=== PATIENT | female | born 1975 | race African-American/Black ===

== ENCOUNTER 2023-01-22 08:45 | Observation (INO) ==
[2023-01-22] MEDS ORDERED: ANCEF VIAL 1 GRAM ONE (11:13)
[2023-01-22] MEDS ORDERED: NS 1,000 ML IV 1,000 ML ONE ×2 (11:14→13:07)
[2023-01-22] MEDS ORDERED: NS 100 ML IV 100 ML ONE ×2 (11:16→22:02)
[2023-01-22 11:37] VITALS: BMI 62.4
[2023-01-22] MEDS ORDERED: FENTANYL VIAL INJ 250 mcg ONE (11:48)
[2023-01-22] MEDS ORDERED: DIPRIVAN VIAL 20 ML ONE (11:49)
[2023-01-22] MEDS ORDERED: QUELICIN (OR ANECTINE) ONE (11:49)
[2023-01-22] MEDS ORDERED: ZOFRAN INJ 4 MG VIAL ONE (11:49)
[2023-01-22] MEDS ORDERED: ZEMURON 100 MG VIAL ONE (11:49)
[2023-01-22] MEDS ORDERED: VERSED ONE (11:49)
[2023-01-22] MEDS ORDERED: PEPCID 20 MG VIAL ONE ×2 (11:49→12:09)
[2023-01-22] MEDS ORDERED: NovoLIN R (or HumuLIN R) ONE (11:56)
[2023-01-22] MEDS: NovoLIN R (or HumuLIN R) SUBCUT PRN ×2 (11:57→22:19)
[2023-01-22] MEDS ORDERED: REGLAN INJ 10 MG VIAL ONE (12:09)
[2023-01-22] MEDS ORDERED: REGLAN INJ 10 MG VIAL IVP PRN (12:48)
[2023-01-22] MEDS ORDERED: BENADRYL INJ 50 MG VIAL IVP PRN (12:48)
[2023-01-22] MEDS ORDERED: BARHEMSYS INJ IVP PRN (12:48)
[2023-01-22] MEDS ORDERED: DILAUDID INJ IVP PRN ×2 (12:48→18:04)
[2023-01-22] MEDS ORDERED: ZOFRAN INJ 4 MG VIAL IVP PRN ×2 (12:48→18:03)
[2023-01-22] MEDS ORDERED: MARCAINE 0.25% INJ ONE (12:54)
[2023-01-22] MEDS ORDERED: ULTANE GAS IN ONE (13:46)
[2023-01-22] MEDS ORDERED: XYLOCAINE 2 % (PLAIN) ONE (13:46)
[2023-01-22] MEDS ORDERED: BRIDION ONE (14:31)
[2023-01-22] MEDS ORDERED: EPHEDRINE SULFATE INJ ONE (14:34)
[2023-01-22] MEDS ORDERED: TORADOL 30 MG VIAL ONE (14:41)
[2023-01-22] MEDS ORDERED: OFIRMEV IV 1000 MG VIAL 1,000 MG/100 ML VIAL IV ONE (14:41)
[2023-01-22] MEDS ORDERED: SUPRANE ONE (16:54)
[2023-01-22] MEDS ORDERED: DILAUDID INJ ONE (16:56)
[2023-01-22] MEDS ORDERED: BETADINE SOLN ONE (17:39)
[2023-01-22] MEDS ORDERED: TYLENOL 325 MG TAB PO PRN (18:03)
[2023-01-22] MEDS ORDERED: PERCOCET TAB 5/325 MG PO PRN (18:03)
[2023-01-22] MEDS ORDERED: BARHEMSYS INJ ONE (18:06)
[2023-01-22] MEDS ORDERED: SNACK - Diabetic Appropriate PO SCH (20:00)
[2023-01-22] MEDS ORDERED: COLACE CAP 100 MG PO SCH (21:00)
[2023-01-22] MEDS: ANCEF VIAL 1 GRAM IVP SCH ×2 (22:21→22:22)
[2023-01-23] MEDS ORDERED: NS 100 ML IV 100 ML ONE (05:28)
[2023-01-23 05:32] VITALS: RESP 20
[2023-01-23] MEDS: ANCEF VIAL 1 GRAM IVP SCH (06:02)
[2023-01-23] MEDS: NovoLIN R (or HumuLIN R) SUBCUT PRN ×2 (06:03→06:10)
[2023-01-23 07:05] LABS: BLOOD UREA NITROGEN 11 mg/dL (7-18); CALCIUM 7.9 mg/dL (8.5-10.1); CARBON DIOXIDE 26.1 mmol/L (21-32); CHLORIDE 100 mmol/L (98-107); COR NA(FOR HYPERGLY) 135 mmol/L (136-145); CREATININE 0.73 mg/dL (0.55-1.02); GLUCOSE 173 mg/dL (65-99); POTASSIUM 3.7 mmol/L (3.5-5.1); SODIUM 133 mmol/L (136-145); eGFR NON BLACK RACES > 60 (>60)
--- NOTE | 2023-01-23 07:53 | NOTE.SOAP ---
Soap Note Note for Day of Date of Exam: 01/23/23 Subjective Data Subjective Data: Patient doing well this am, denies any acute symptoms overnight and pain controlled with medication Objective Data Objective Data: Deferred- dressing c/d/i without strikethrough Able to move toes, SLASH TRIMMER <3s to all toes Assessment Assessment: s/p Ankle, Subtalar and midfoot fusion, Right foot Charcot Neuroarthropathy Plan Plan: Patient doing well this am. Discussed importance of strictly non weigh tbearing in order to heal appropriately. Patient to keep dressings clean dry and intact until follow up visit with Dr. Richardson. Recommending a session with physical therapy prior to discharge. Discharge instructions and scripts are in the chart.
[2023-01-23] MEDS ORDERED: CONSULT PHARMACY - POTASSIUM & MAGNESIUM XX SCH (08:00)
[2023-01-23] MEDS ORDERED: K-DUR TAB 20 MEQ PO SCH (08:00)
[2023-01-23] MEDS ORDERED: LOVENOX INJ 40 MG SYR SC SCH (09:00)
[2023-01-23] MEDS: MAG-OX TAB PO SCH ×2 (09:18→10:19)
[2023-01-23 09:36] VITALS: BP 122/60; PULSE 103; TEMP 98.1; O2SAT 97
[2023-01-23] MEDS ORDERED: MAG-OX TAB PO SCH (21:00)
== END 2023-01-23 11:15 | disposition home health service (06) ==
LOC: OBS → MED/SURG 17:02
PROVIDERS: ADMIT Obstetrics & Gynecology Obstetrics; ATTEND Obstetrics & Gynecology Obstetrics
PROC: MIDFOOT (2023-01-22 13:00)
DX: M79.671 Pain in right foot; E11.65 Type 2 diabetes mellitus with hyperglycemia; M19.071 Primary osteoarthritis, right ankle and foot; E11.610 Type 2 diabetes mellitus with diabetic neuropathic arthropathy; I10 Essential (primary) hypertension

== ENCOUNTER 2023-04-08 11:05 | Inpatient (IN) ==
[2023-04-08 11:25] VITALS: BMI 60.1
--- NOTE | 2023-04-08 11:32 | DR.EXTPAIN ---
HPI Time seen Time Seen by Provider: 04/08/23 11:31 PCP Primary Care Physician: Dr. Raya Complaint/Symptoms Chief Complaint Doctor Comments: 48-year-old female presents with persistent ulceration of her right heel. See summary of recent events in the chief complaint documented by the nurse. Referred here to see Dr. Richardson by the wound center. Persistent pain of the right heel, dull , does not radiate. Nothing makes it better, nothing makes it worse. Wearing a splint, having irritation of her right lower leg from the splint, with walking and movement. Denies any fevers or chills. No bowel or bladder issues. Chief Complaint:: Pt states that she has had a chronic nonhealing pressure ulcer to the right heel since prior to her last foot surgery on 03/14/23. Pt had wound vac intact until 04/03/23 when it was removed. Pt has been going to the wound clinic in [place] daily for daily dressing changed with betadine and splint application. Pt is also receiving IV Daptomycin daily and another IV antibiotic twice daily that she is unsure of the name. Pt c/o intermitent pain into the right heel that sometimes radiates up into the back of the right leg. Pt was seen at wound care this morning and they spoke with Dr. Richardson who requested that pt come to the ED and we call him when she arrives. Self Treatment fo Chief Complaint: Pt took Tylenol 500mg po around 7am today. COVID-19 Coronavirus risk:travel/contact w/high risk person: No Has patient experienced Coronavirus symptoms: No Nurses notes reviewed Nurses Notes Review: Yes Source History Provided: Patient Mode of arrival Mode of Arrival: Wheelchair Timing Onset of Chief Complaint: 04/08/23 PMH PMH Past Medical History: Yes Past Medical History: Diabetes and Hypertension Past Medical History Comment: Charcot foot Past Surgical History: Yes Surgical History: and Ortho Surgery Past Surgical History Comment: back surgery, foot fusion, multiple I&D right leila t, tubal ligation Family History History of Family Medical Conditions: Yes Family Medical History: Diabetes Mellitus and Hypertension Social History Does patient currently use any type of tobacco product: No Have you used tobacco products in the last 12 months: No Type of Tobacco Use: None Does any household member use tobacco: No Alcohol Use: None Do you use any recreational Drugs:: No Lives With: Family Lives Where: Home Travel Risk Coronavirus risk:travel/contact w/high risk person: No Has patient experienced Coronavirus symptoms: No Infectious screening In the last 2 months have you had wt loss of >10#?: NO Have you had fever, night sweats or hemotysis?: No Have you traveled outside the country in the last 6 months?: No Isolation: Standard ROS Review of Systems Constitutional: No Symptoms Reported Eyes: No Symptoms Reported ENTM: No Symptoms Reported Respiratoy: No Symptoms Reported Cardiovascular: No Symptoms Reported Gastrointestinal/Abdominal: No Symptoms Reported Genitourinary: No Symptoms Reported Neurological: No Symptoms Reported Musculoskeletal: See HPI Integumentary: See HPI All Other Systems: Reviewed and Negative PE Vital Signs Vitals: Vital Signs Temperature 98.9 F Pulse Rate 90 Respiratory Rate 20 Blood Pressure 202/89 Blood Pressure 166/106 O2 Sat by Pulse Oximetry 100 General General Appearance: Alert and In No Apparent Distress Eyes Eye exam: PERRL and EOMI ENT ENT Exam: Mucous Membranes Moist Neck Neck Exam: Normal Inspection Respiratory Respiratory Exam: Normal Lung Sounds Bilat; negative Accessory Muscle Use or Respiratory Distress Cardiovascular Cardiovascular Exam: Regular Rate, Normal Rhythm and Normal Heart Sounds Abdominal Exam Abdominal Exam: Normal Bowel Sounds and Soft; negative Tenderness Neurological Neurological Exam: Alert, Oriented X3 and CN II-XII Intact; negative Motor Sensory Deficit Skin Skin Exam: Warm and Dry COURSE Treatment Treatment: Work-up initiated. Patient given IV fluids. Dr. Richardson notified on patient's arrival to the ER. He asked that we work her up, and will plan on admitting her for the OR in the am. Right short leg splint was removed by nursing. Dr. Richardson's fellow came, examined the pt, obtained a culture of the R heel ulceration, and re-wrapped the foot. Labs are overall acceptable. X-rays of the right foot shows chronic changes status post surgery, of the right foot. Will admit to medicine, pt accepted for admission by Dr White. Will continue current IV atibiotics, pt will be NPO after MN. Anticipate surgery in the AM for debridement. Patient has failed outpatient therapy. ROR Labs Reviewed Laboratory Results Reviewed?: Yes 04/08/23 12:00 04/08/23 12:00 Laboratory: 04/08/23 12:26 Foot - Right Wound Gram Stain - Final WBC 11.4 X10^3/uL (3.6-10.0) H 04/08/23 12:00 RBC 4.58 X10^6/uL (3.5-5.4) 04/08/23 12:00 Hgb 10.6 g/dL (12.0-16.0) L 04/08/23 12:00 Hct 32.5 % (36.0-47.0) L 04/08/23 12:00 MCV 70.9 fL (80.0-100.0) L 04/08/23 12:00 MCH 23.1 pg (27.0-34.0) L 04/08/23 12:00 MCHC 32.6 g/dL (33.0-35.0) L 04/08/23 12:00 RDW 20.7 % (11.6-16.5) H 04/08/23 12:00 Plt Count 480 X10^3/uL (150.0-450.0) H 04/08/23 12:00 Plt Count Comment Increased (ADEQUATE) A 04/08/23 12:00 MPV 7.2 fL (7.4-11.0) L 04/08/23 12:00 Neut % (Auto) 50.0 % (42.0-75.0) 04/08/23 12:00 Lymph % (Auto) 34.7 % (21.0-51.0) 04/08/23 12:00 [place] % (Auto) 7.3 % (0.0-13.0) 04/08/23 12:00 Eos % (Auto) 6.5 % (0.9-2.9) H 04/08/23 12:00 Baso % (Auto) 1.5 % (0.2-1.0) H 04/08/23 12:00 Neut # (Auto) 5.7 x10^3/uL (2.2-4.8) H 04/08/23 12:00 Lymph # (Auto) 4.0 X10^3/uL (1.3-2.9) H 04/08/23 12:00 [place] # (Auto) 0.8 x10^3/uL (0.3-0.8) 04/08/23 12:00 Eos # (Auto) 0.7 x10^3/uL (0.0-0.2) H 04/08/23 12:00 Baso # (Auto) 0.2 X10^3/uL (0.0-0.1) H 04/08/23 12:00 Absolute Nucleated RBC 0.0 /100WBC 04/08/23 12:00 Plt Morphology Comment Normal (NORMAL) 04/08/23 12:00 RBC Morphology Abnormal (NORMAL) A 04/08/23 12:00 Hypochromasia Slight A 04/08/23 12:00 Anisocytosis 1+ A 04/08/23 12:00 Microcytosis Slight A 04/08/23 12:00 Target Cells Slight A 04/08/23 12:00 Sodium 135 mmol/L (136-145) L 04/08/23 12:00 Corrected Sodium 137 mmol/L (136-145) 04/08/23 12:00 Potassium 3.9 mmol/L (3.5-5.1) 04/08/23 12:00 Chloride 100 mmol/L (98-107) 04/08/23 12:00 Carbon Dioxide 27.4 mmol/L (21-32) 04/08/23 12:00 BUN 8 mg/dL (7-18) 04/08/23 12:00 Creatinine 0.77 mg/dL (0.55-1.02) 04/08/23 12:00 Est GFR (MDRD) Af Amer > 60 (>60) 04/08/23 12:00 Est GFR (MDRD) Non-Af > 60 (>60) 04/08/23 12:00 Glucose 184 mg/dL (65-99) H 04/08/23 12:00 Lactic Acid 1.4 mmol/L (0.4-2.0) 04/08/23 12:00 Calcium 8.6 mg/dL (8.5-10.1) 04/08/23 12:00 Corrected Calcium 9.5 mg/dL (8.5-10.1) 04/08/23 12:00 Total Bilirubin 0.60 mg/dL (0.2-1.0) 04/08/23 12:00 AST 14 Units/L (15-37) L 04/08/23 12:00 ALT < 6 Units/L (12-78) L 04/08/23 12:00 Alkaline Phosphatase 87 Units/L (46-116) 04/08/23 12:00 Total Protein 8.9 g/dL (6.4-8.2) H 04/08/23 12:00 Albumin 2.9 g/dL (3.4-5.0) L 04/08/23 12:00 Globulin 6.0 g/dL (2.5-4.5) H 04/08/23 12:00 Albumin/Globulin Ratio 0.5 Ratio (1.1-2.1) L 04/08/23 12:00 Labs acceptable. Opioid Opioid Risk Tool Age (Afshin box if 16-45): No History of Preadolescent Sexual Abuse: No Total: 0 Total Score Risk Category: Low Risk Copyright: Darío MANZO predicting aberrant behaviors Discharge Plan Diagnosis Discharge Problem: Ulcer of right foot Discharge Plan Patient Disposition: 01 HOME, SELF-CARE Condition: Stable Prescriptions: No Action metformin 500 mg tablet 500 mg PO BID glipizide 5 mg tablet 5 mg PO BID losartan 50 mg Tablet 50 mg PO QDAY Maxipime 2 gram Piggyback 2 g IV BID daptomycin in 0.9 % sod chlor 500 mg/50 mL Piggyback 500 mg IV DAILY Health Concerns: Post Hospitalization: new medications and changes needed to prevent readmission or further decline. Pt educated and given instructions on all concerns. Plan of Treatment: Continue with present treatment and follow up plan. Pt is to keep follow up appointment as instructed and take medications as ordered. Orders to Discharge Patient Discharge Orders: Transfer (Routine); Ordered 04/08/23 Ordered By: Levon Tinsley Instructions Stand Alone Forms: Post Hospital Follow Up Care
[2023-04-08] MEDS ORDERED: NS 1,000 ML IV 1,000 ML IV ONE (11:35)
[2023-04-08] MEDS ORDERED: NS 1,000 ML IV 1,000 ML ONE (11:42)
[2023-04-08 12:14] LABS: BASOPHILS # (AUTO) 0.2 X10^3/uL (0.0-0.1); BASOPHILS % (AUTO) 1.5 % (0.2-1.0); EOSINOPHILS # (AUTO) 0.7 x10^3/uL (0.0-0.2); EOSINOPHILS % (AUTO) 6.5 % (0.9-2.9); HEMATOCRIT 32.5 % (36.0-47.0); HEMOGLOBIN 10.6 g/dL (12.0-16.0); LYMPHOCYTES % (AUTO) 34.7 % (21.0-51.0); MEAN CORPUSCULAR HEMOGLOBIN 23.1 pg (27.0-34.0); MEAN CORPUSCULAR HGB CONC 32.6 g/dL (33.0-35.0); MEAN CORPUSCULAR VOLUME 70.9 fL (80.0-100.0); MEAN PLATELET VOLUME 7.2 fL (7.4-11.0); MONOCYTES # (AUTO) 0.8 x10^3/uL (0.3-0.8); MONOCYTES % (AUTO) 7.3 % (0.0-13.0); NEUTROPHILS # (AUTO) 5.7 x10^3/uL (2.2-4.8); PLATELET COUNT 480 X10^3/uL (150.0-450.0); RED BLOOD COUNT 4.58 X10^6/uL (3.5-5.4); RED CELL DISTRIBUTION WIDTH 20.7 % (11.6-16.5); WHITE BLOOD COUNT 11.4 X10^3/uL (3.6-10.0)
[2023-04-08 12:24] LABS: ALANINE AMINOTRANSFERASE < 6 Units/L (12-78); ALBUMIN 2.9 g/dL (3.4-5.0); ALKALINE PHOSPHATASE 87 Units/L (46-116); ASPARTATE AMINO TRANSFERASE 14 Units/L (15-37); BLOOD UREA NITROGEN 8 mg/dL (7-18); CALCIUM 8.6 mg/dL (8.5-10.1); CARBON DIOXIDE 27.4 mmol/L (21-32); CHLORIDE 100 mmol/L (98-107); COR CA(FOR HYPOALB) 9.5 mg/dL (8.5-10.1); COR NA(FOR HYPERGLY) 137 mmol/L (136-145); CREATININE 0.77 mg/dL (0.55-1.02); GLUCOSE 184 mg/dL (65-99); POTASSIUM 3.9 mmol/L (3.5-5.1); SODIUM 135 mmol/L (136-145); TOTAL PROTEIN 8.9 g/dL (6.4-8.2); eGFR NON BLACK RACES > 60 (>60)
[2023-04-08 12:38] LABS: ANISOCYTOSIS 1+; HYPOCHROMASIA SLIGHT; MICROCYTOSIS SLIGHT; PLATELET MORPHOLOGY COMMENT NORMAL (NORMAL)
[2023-04-08 12:39] LABS: TARGET CELLS SLIGHT
--- NOTE | 2023-04-08 12:39 | NOTE.SOAP ---
Soap Note Note for Day of Date of Exam: 04/08/23 Subjective Data Subjective Data: Patient well known to our services, has been following up in Dr. Richardson's office. Patient recommended to be admitted due to infection to right foot. Patient denies any symptoms at this time but will be taken to surgery tomorrow to apply an offloading external fixator. Wound has developped due to excessive area to the area despite educating patient on offloading. Objective Data Objective Data: Full thickness wound on the posteromedial heel, probes to bone. Wound base is fibrogranular with a macerated boarder. Serous drainage noted. No tracking or malodor Neurovascular status intact Assessment Assessment: Pressure ulcer- Right foot Charcot Arthropathy- right foot Foot contracture- right foot Plan Plan: Patient was seen bedside in the ER. A culture of the wound was collected. Dressings reapplied. Plan to take patient to surgery tomorrow to apply offloading frame. She can likely be discharged after the procedure. Patient to be NPO after midnight
[2023-04-08] MEDS ORDERED: APRESOLINE INJ 20 MG VIAL IVP ONE ×3 (12:49→15:41)
[2023-04-08] MEDS ORDERED: APRESOLINE INJ 20 MG VIAL ONE (12:49)
[2023-04-08] MEDS ORDERED: LOPRESSOR INJ 5 MG AMP IVP ONE (13:20)
[2023-04-08] MEDS ORDERED: LOPRESSOR INJ 5 MG AMP ONE (13:21)
[2023-04-08] MEDS ORDERED: CATAPRES TAB 0.1 MG PO ONE (14:04)
[2023-04-08] MEDS ORDERED: CONSULT PHARMACY - POTASSIUM & MAGNESIUM XX SCH (14:04)
[2023-04-08] MEDS ORDERED: NORMODYNE INJ 20 MG VIAL IV PRN (14:04)
--- NOTE | 2023-04-08 14:54 | EKG ---
Test Reason : BP 194/84 Blood Pressure : */* mmHG Vent. Rate : 90 BPM Atrial Rate : 90 BPM P-R Int : 132 ms QRS Dur : 72 ms QT Int : 372 ms P-R-T Axes : 62 -16 20 degrees QTc Int : 455 ms Normal sinus rhythm Cannot rule out Anterior infarct (cited on or before 31-DEC-2022) Abnormal ECG When compared with ECG of 31-DEC-2022 13:46, No significant change was found Confirmed by Mahad Shaffer ([id number]) on 04/09/2023 8:32:57 AM Referred By: Confirmed By: Mahad Shaffer
[2023-04-08] MEDS: D5 1/2 NS + KCL 40 MEQ/L 1,000 ML IV SCH (15:27)
--- NOTE | 2023-04-08 16:53 | RAD ---
EXAM:FOOT, LEFT three-viewHISTORY:CHRONIC HEEL ULCER, R/O OSTEOMYELITIS;COMPARISON:NoneFINDINGS:Se patricio chronic deformity of the midfoot and hindfoot with ankle and midfoot arthrodesis. No acute fracture. Erosive changes in the posterior calcaneus. Edema throughout the foot. The talus and calcaneus appear intact.IMPRESSION:Erosive changes in the posterior calcaneus concerning for osteomyelitis. Marked edema throughout the foot.THIS IS AN ELECTRONICALLY VERIFIED FINAL [id number]/08/2023 4:49 PM - Electronically signed by Oneil Villatoro MD
[2023-04-08] MEDS: NovoLIN R (or HumuLIN R) SC PRN ×2 (17:07→20:24)
[2023-04-08] MEDS ORDERED: GLUCOPHAGE ONE (20:11)
[2023-04-08] MEDS: GLUCOTROL PO SCH (20:24)
[2023-04-08] MEDS: GLUCOPHAGE PO SCH (20:24)
[2023-04-08] MEDS: SNACK - Diabetic Appropriate PO SCH (20:25)
[2023-04-08] MEDS: MAXIPIME VIAL 2 GRAMS 2 G in NS 100 ML IV 100 ML IV SCH (20:25)
[2023-04-08] MEDS ORDERED: PIGGYBACK IV SCH (21:00)
[2023-04-08] MEDS ORDERED: CEFEPIME 2 GM IV SCH (21:00)
[2023-04-09] MEDS: D5 1/2 NS + KCL 40 MEQ/L 1,000 ML IV SCH (04:22)
[2023-04-09] MEDS ORDERED: HIBICLENS WASH ONE (05:18)
[2023-04-09 05:32] LABS: BASOPHILS # (AUTO) 0.2 X10^3/uL (0.0-0.1); BASOPHILS % (AUTO) 1.5 % (0.2-1.0); EOSINOPHILS # (AUTO) 0.6 x10^3/uL (0.0-0.2); EOSINOPHILS % (AUTO) 6.3 % (0.9-2.9); HEMATOCRIT 26.9 % (36.0-47.0); HEMOGLOBIN 9.2 g/dL (12.0-16.0); LYMPHOCYTES # (AUTO) 3.2 X10^3/uL (1.3-2.9); LYMPHOCYTES % (AUTO) 31.6 % (21.0-51.0); MEAN CORPUSCULAR HEMOGLOBIN 24.1 pg (27.0-34.0); MEAN CORPUSCULAR VOLUME 70.9 fL (80.0-100.0); MEAN PLATELET VOLUME 7.7 fL (7.4-11.0); MONOCYTES # (AUTO) 1.1 x10^3/uL (0.3-0.8); MONOCYTES % (AUTO) 10.6 % (0.0-13.0); PLATELET COUNT 420 X10^3/uL (150.0-450.0); RED CELL DISTRIBUTION WIDTH 20.7 % (11.6-16.5); WHITE BLOOD COUNT 10.1 X10^3/uL (3.6-10.0)
[2023-04-09 05:37] LABS: ALANINE AMINOTRANSFERASE < 6 Units/L (12-78); ALBUMIN 2.3 g/dL (3.4-5.0); ALKALINE PHOSPHATASE 66 Units/L (46-116); ASPARTATE AMINO TRANSFERASE 12 Units/L (15-37); BLOOD UREA NITROGEN 10 mg/dL (7-18); CALCIUM 8.3 mg/dL (8.5-10.1); CARBON DIOXIDE 25.9 mmol/L (21-32); CHLORIDE 104 mmol/L (98-107); COR CA(FOR HYPOALB) 9.7 mg/dL (8.5-10.1); CREATININE 0.66 mg/dL (0.55-1.02); GLUCOSE 79 mg/dL (65-99); POTASSIUM 4.2 mmol/L (3.5-5.1); SODIUM 136 mmol/L (136-145); TOTAL PROTEIN 7.1 g/dL (6.4-8.2); eGFR NON BLACK RACES > 60 (>60)
[2023-04-09 06:12] LABS: ANISOCYTOSIS 1+; HYPOCHROMASIA SLIGHT; MICROCYTOSIS SLIGHT; PLATELET MORPHOLOGY COMMENT NORMAL (NORMAL); TARGET CELLS SLIGHT
[2023-04-09] MEDS ORDERED: MAGNESIUM SULFATE 50% INJ VIAL ONE ×2 (08:53→12:15)
[2023-04-09] MEDS ORDERED: SODIUM CHLORIDE IV SCH (09:00)
[2023-04-09] MEDS ORDERED: DAPTOMYCIN IV SCH (09:00)
[2023-04-09] MEDS: D5 1/2 NS + KCL 20 MEQ/L 1,000 ML with MAGNESIUM SULFATE 50% INJ VIAL 1 G IV SCH ×4 (09:12→23:47)
[2023-04-09] MEDS: NS IV SCH ×3 (09:25→10:10)
[2023-04-09] MEDS: CUBICIN IV SCH ×3 (09:25→10:10)
[2023-04-09] MEDS: MAXIPIME VIAL 2 GRAMS 2 G in NS 100 ML IV 100 ML IV SCH ×3 (09:26→21:13)
[2023-04-09] MEDS: GLUCOPHAGE PO SCH ×2 (09:26→21:12)
[2023-04-09] MEDS: GLUCOTROL PO SCH ×2 (09:26→21:12)
[2023-04-09] MEDS: COZAAR PO SCH (09:29)
[2023-04-09] MEDS ORDERED: DECADRON INJ ONE (12:15)
[2023-04-09] MEDS ORDERED: ZOFRAN INJ 4 MG VIAL ONE (12:15)
[2023-04-09] MEDS ORDERED: ZEMURON 100 MG VIAL ONE (12:15)
[2023-04-09] MEDS ORDERED: DIPRIVAN VIAL 20 ML ONE (12:15)
[2023-04-09] MEDS ORDERED: ROBINUL ONE (12:15)
[2023-04-09] MEDS ORDERED: PEPCID 20 MG VIAL ONE (12:15)
[2023-04-09] MEDS ORDERED: DILAUDID INJ ONE (12:16)
[2023-04-09] MEDS ORDERED: KETAMINE 50 MG/5 ML-NACL SYRNG ONE (12:16)
[2023-04-09] MEDS ORDERED: VERSED ONE (12:16)
[2023-04-09] MEDS ORDERED: MARCAINE 0.25% INJ ONE (12:27)
[2023-04-09] MEDS ORDERED: VANCOMYCIN HCL ONE ×2 (12:46→15:11)
[2023-04-09] MEDS ORDERED: TOBRAMYCIN SULFATE ONE ×2 (12:46→15:11)
[2023-04-09] MEDS ORDERED: NS 1,000 ML IV 1,000 ML ONE (13:22)
[2023-04-09] MEDS ORDERED: ANCEF VIAL 1 GRAM ONE (13:22)
[2023-04-09] MEDS ORDERED: NS 100 ML IV 100 ML ONE (13:22)
[2023-04-09] MEDS ORDERED: ZOFRAN INJ 4 MG VIAL IVP PRN ×2 (13:53→17:26)
[2023-04-09] MEDS ORDERED: BARHEMSYS INJ IVP PRN (13:53)
[2023-04-09] MEDS ORDERED: DILAUDID INJ IVP PRN (13:53)
[2023-04-09] MEDS ORDERED: REGLAN INJ 10 MG VIAL IVP PRN (13:53)
[2023-04-09] MEDS ORDERED: BENADRYL INJ 50 MG VIAL IVP PRN (13:53)
[2023-04-09] MEDS ORDERED: SUPRANE ONE (14:22)
[2023-04-09] MEDS ORDERED: NEO-SYNEPHRINE INJ ONE (14:44)
[2023-04-09] MEDS ORDERED: BRIDION ONE (15:21)
[2023-04-09] MEDS ORDERED: PERCOCET TAB 5/325 MG PO PRN (15:56)
[2023-04-09] MEDS ORDERED: GLUCOPHAGE ONE (20:29)
[2023-04-09] MEDS: SNACK - Diabetic Appropriate PO SCH (21:17)
[2023-04-09] MEDS: NovoLIN R (or HumuLIN R) SC PRN (21:18)
[2023-04-10] MEDS ORDERED: HIBICLENS WASH EXT ONE (05:00)
[2023-04-10 05:36] LABS: BASOPHILS # (AUTO) 0.2 X10^3/uL (0.0-0.1); BASOPHILS % (AUTO) 1.3 % (0.2-1.0); EOSINOPHILS % (AUTO) 0.1 % (0.9-2.9); HEMATOCRIT 30.4 % (36.0-47.0); LYMPHOCYTES # (AUTO) 2.4 X10^3/uL (1.3-2.9); LYMPHOCYTES % (AUTO) 19.3 % (21.0-51.0); MEAN CORPUSCULAR HEMOGLOBIN 23.7 pg (27.0-34.0); MEAN CORPUSCULAR HGB CONC 32.8 g/dL (33.0-35.0); MEAN CORPUSCULAR VOLUME 72.4 fL (80.0-100.0); MEAN PLATELET VOLUME 7.8 fL (7.4-11.0); MONOCYTES # (AUTO) 0.8 x10^3/uL (0.3-0.8); MONOCYTES % (AUTO) 6.8 % (0.0-13.0); NEUTROPHILS % (AUTO) 72.5 % (42.0-75.0); PLATELET COUNT 439 X10^3/uL (150.0-450.0); WHITE BLOOD COUNT 12.3 X10^3/uL (3.6-10.0)
[2023-04-10] MEDS: NovoLIN R (or HumuLIN R) SC PRN ×2 (05:49→13:00)
[2023-04-10 05:56] LABS: PLATELET MORPHOLOGY COMMENT NORMAL (NORMAL)
[2023-04-10 05:57] LABS: ALBUMIN 2.4 g/dL (3.4-5.0); ALKALINE PHOSPHATASE 72 Units/L (46-116); ANISOCYTOSIS 1+; ASPARTATE AMINO TRANSFERASE 20 Units/L (15-37); BLOOD UREA NITROGEN 11 mg/dL (7-18); CALCIUM 8.1 mg/dL (8.5-10.1); CARBON DIOXIDE 22.3 mmol/L (21-32); CHLORIDE 101 mmol/L (98-107); COR CA(FOR HYPOALB) 9.4 mg/dL (8.5-10.1); COR NA(FOR HYPERGLY) 134 mmol/L (136-145); CREATININE 0.78 mg/dL (0.55-1.02); GLUCOSE 222 mg/dL (65-99); HYPOCHROMASIA 1+; MICROCYTOSIS SLIGHT; POTASSIUM 5.4 mmol/L (3.5-5.1); SCHISTOCYTES SLIGHT; SODIUM 131 mmol/L (136-145); TARGET CELLS SLIGHT; TOTAL PROTEIN 7.8 g/dL (6.4-8.2); eGFR NON BLACK RACES > 60 (>60)
[2023-04-10 06:01] LABS: ALANINE AMINOTRANSFERASE < 6 Units/L (12-78)
--- NOTE | 2023-04-10 06:26 | NOTE.SOAP ---
Soap Note Note for Day of Date of Exam: 04/10/23 Subjective Data Subjective Data: POD1 s/p wound debridement, bone biopsy, application of ex fix and application of abx cement. Patient doing okay this am, she was experiencing some nausea overnight but otherwise she is feeling better now. No other symptoms noted. No pain to the surgical site Objective Data Objective Data: Pin sites c/d/i Strikethrough dressings; wound appeared granular this am with serosanguinous drainage. No malodor or purulence noted. Antibiotic cement carlitos was in place (removed bedside) Gross epicritic and protective sensation diminished Vascular status intact Assessment Assessment: s/p wound debridement, bone biopsy, application of ex fix and applic ation of abx cement - Non healing pressure ulcer, right foot - Osteomyelitis, right foot Plan Plan: Patient seen at bedside, explained the importance of offloading as that is the reason we applied the frame. She expressed how difficult it has been to offload prior to the frame. Dressings were changed and I removed the antibiotic cement from the wound. A dry sterile dressing was applied- explained to patient she will continue getting wound care twice a week with home health to apply the wound vac (same as before). She will also continue her IV abx via picc line as she was prior to her admission. Patient is ready for discharge from a podiatry standpoint. She is to follow up with Dr. Richardson at her scheduled appointment, but to call the office if any problems arrise.
[2023-04-10] MEDS ORDERED: D5 1/2 NS 1,000 ML 1,000 ML IV SCH (08:00)
[2023-04-10] MEDS ORDERED: GLUCOPHAGE ONE (08:27)
[2023-04-10] MEDS: GLUCOTROL PO SCH (09:07)
[2023-04-10] MEDS: GLUCOPHAGE PO SCH (09:07)
[2023-04-10] MEDS: MAXIPIME VIAL 2 GRAMS 2 G in NS 100 ML IV 100 ML IV SCH (09:07)
[2023-04-10] MEDS: COZAAR PO SCH (09:08)
[2023-04-10] MEDS: NS IV SCH (09:08)
[2023-04-10] MEDS: CUBICIN IV SCH (09:08)
[2023-04-10] MEDS ORDERED: NS 1,000 ML IV 1,000 ML IV SCH (10:00)
[2023-04-10] MEDS ORDERED: LR 1,000 ML IV 1,000 ML IV SCH (10:00)
[2023-04-10 10:43] VITALS: O2SAT 99
[2023-04-10 15:25] VITALS: BP 132/59; PULSE 96; RESP 20; TEMP 98.5
== END 2023-04-10 15:55 | disposition home or self-care (01) | DRG 571 ==
LOC: SUPCPDRO → ER 11:05 → MED/SURG 13:21
PROVIDERS: ADMIT Obstetrics & Gynecology Obstetrics; ATTEND Obstetrics & Gynecology Obstetrics
PROC: APEXFIX (2023-04-09 15:15)
PROC: DEBRIDE (2023-04-09 15:15)
DX: E11.621 Type 2 diabetes mellitus with foot ulcer; M86.8X7 Other osteomyelitis, ankle and foot; E66.01 Morbid (severe) obesity due to excess calories; E11.65 Type 2 diabetes mellitus with hyperglycemia; L03.115 Cellulitis of right lower limb; B96.89 Other specified bacterial agents as the cause of diseases classified elsewhere; L97.418 Non-pressure chronic ulcer of right heel and midfoot with other specified severity; I10 Essential (primary) hypertension